=== PATIENT | male | born 1985 | race African-American/Black ===

== ENCOUNTER 2019-06-19 11:26 | Emergency (ER) | payer MEDICAID, OTHER ==
[~2019-06-19] VITALS: Ht 172.7 cm; Wt 90.0 kg
[2019-06-19 14:40] VITALS: BP 130/85
== END 2019-06-19 14:41 | disposition home or self-care (01) ==
LOC: ER 11:26
DX: L02.213 Cutaneous abscess of chest wall (principal); L03.313 Cellulitis of chest wall; R03.0 Elevated blood-pressure reading, without diagnosis of hypertension
CPT/HCPCS: 99282